=== PATIENT | male | born 1980 | race African-American/Black ===

== ENCOUNTER 2020-12-11 19:30 | Emergency (ER) | payer MEDICAID ==
[~2020-12-11] VITALS: Ht 185.4 cm; Wt 81.9 kg
[~2020-12-11 19:30] MED LIST: DIVALPROEX; HALO10TA13; LIP40 PO; METF-414 PO; SULF1TAB44 PO
[2020-12-11] MEDS ORDERED: BACITRACIN ZINC OINT UDPKT TOP ONE (21:00)
[2020-12-11 21:25] VITALS: BP 122/74
== END 2020-12-11 21:33 | disposition home or self-care (01) ==
LOC: ER 19:30
DX: E11.9 Type 2 diabetes mellitus without complications (principal); L03.114 Cellulitis of left upper limb
CPT/HCPCS: 99282; Z7610

== ENCOUNTER 2020-12-14 16:50 | Emergency (ER) | payer MEDICAID ==
[~2020-12-14] VITALS: Ht 185.4 cm; Wt 79.0 kg
[2020-12-14 16:56] VITALS: BP 131/51
== END 2020-12-14 18:12 | disposition home or self-care (01) ==
LOC: ER 16:50
DX: Z48.00 Encounter for change or removal of nonsurgical wound dressing (principal)
CPT/HCPCS: 99282